=== PATIENT | female | born 1980 | race Caucasian/White ===

== ENCOUNTER 2017-08-19 12:48 | Emergency (ER) | payer BC, MEDICAID ==
[2017-08-19] MEDS ORDERED: Sodium Chloride 0.9% 1,000 ML IV ONE (13:57)
[2017-08-19] MEDS ORDERED: Sodium Chloride 0.9% 1,000 ML ONE (14:20)
[2017-08-19 14:21] LABS: BASO % 0.4 % (0.0-2.0); EOS # 0.4 K/uL (0.0-0.7); EOS % 4.3 % (0.0-4.0); HEMOGLOBIN 12.4 g/dL (11.0-16.0); LYMPH # 1.1 K/uL (1.0-4.3); LYMPH % 11.6 % (20.0-40.0); MEAN CELL VOLUME 91.1 fL (81.0-99.0); MEAN CORPUSCULAR HEMOGLOBIN 31.7 pg (27.0-31.0); MEAN CORPUSCULAR HGB CONC 34.8 g/dL (33.0-37.0); MONO # 0.5 K/uL (0.0-0.8); MONO % 5.9 % (0.0-10.0); NEUT # 7.1 K/uL (1.8-7.0); NEUT % 77.8 % (50.0-75.0); RBC 3.92 Mil/uL (3.80-5.20); RED CELL DISTRIBUTION WIDTH 12.6 % (11.5-14.5); WHITE BLOOD COUNT 9.2 K/uL (4.8-10.8)
[2017-08-19 14:31] LABS: SQUAMOUS EPITHIAL 7 /hpf (0-5); URINE BACTERIA OCC (<OCC); URINE BILIRUBIN NEGATIVE (NEGATIVE); URINE BLOOD NEGATIVE (NEGATIVE); URINE CLARITY Hazy (Clear); URINE COLOR Yellow (YELLOW); URINE GLUCOSE (UA) NORMAL (Normal); URINE LEUKOCYTE ESTERASE 1+ Leu/uL (Negative); URINE PROTEIN NEGATIVE (NEGATIVE); URINE UROBILINOGEN NORMAL mg/dL (0.2-1.0)
[2017-08-19 14:33] LABS: ALB/GLOB RATIO 1.4 (1.0-2.1); ALBUMIN 3.7 g/dL (3.5-5.0); ALT/SGPT 27 U/L (9-52); AST/SGOT 25 U/L (14-36); BLOOD UREA NITROGEN 10 mg/dL (7-17); CALCIUM 8.7 mg/dl (8.6-10.4); GFR AFRICAN-AMERICAN > 60; GFR NON-AFRICAN AMERICAN > 60; LIPASE 100 U/L (23-300)
--- NOTE | 2017-08-19 17:15 | C.PDOC ---
History Of Present Illness 36yoi female, with no past medical history, presents to ED with complaints of a sharp right lower quadrant pain for the past 3 days. She has been taking Motrin with mild pain relief. Patient states she has mild nausea but denies any vomiting, fever, vaginal bleeding, or discharge. She denies any hematochezia, hematuria or dysuria. She does report mild decreased PO intake and offers no other medical complaints. Time Seen by Provider: 08/19/17 13:50 Chief Complaint (Nursing): Abdominal Pain History Per: Patient History/Exam Limitations: no limitations Onset/Duration Of Symptoms: Days Current Symptoms Are (Timing): Still Present Location Of Pain/Discomfort: RLQ Quality Of Discomfort: Sharp Associated Symptoms: Loss Of Appetite. denies: Urinary Symptoms Abnormal Vaginal Bleeding: No Past Medical History Reviewed: Historical Data, Nursing Documentation, Vital Signs Vital Signs: Last Vital Signs Temp 98.3 F 08/19/17 18:47 Pulse 70 08/19/17 18:47 Resp 18 08/19/17 19:05 BP 91/61 L 08/19/17 18:47 Pulse Ox 99 08/19/17 18:47 - Medical History PMH: Asthma Surgical History: No Surg Hx Family History: States: Unknown Family Hx - Social History Hx Tobacco Use: No Hx Alcohol Use: No Hx Substance Use: No - Immunization History Hx Tetanus Toxoid Vaccination: No Hx Influenza Vaccination: No Hx Pneumococcal Vaccination: No Review Of Systems Except As Marked, All Systems Reviewed And Found Negative. Constitutional: Negative for: Fever, Chills Gastrointestinal: Positive for: Nausea, Abdominal Pain. Negative for: Vomiting , Diarrhea, Hematochezia Genitourinary: Negative for: Dysuria, Hematuria Physical Exam - Physical Exam Appears: Non-toxic, No Acute Distress Skin: Normal Color, Warm, Dry Head: Atraumatic, Normacephalic Eye(s): bilateral: Normal Inspection, PERRL Neck: Normal ROM, Supple Chest: Symmetrical Cardiovascular: Rhythm Regular Respiratory: Normal Breath Sounds, No Wheezing Gastrointestinal/Abdominal: Soft, Tenderness (minimal right lower quadrant tenderness), No Mass, No Guarding, No Rebound Back: Normal Inspection Extremity: Normal ROM, No Deformity Neurological/Psych: Oriented x3 ED Course And Treatment - Laboratory Results Result Diagrams: 08/19/17 14:16 08/19/17 14:16 O2 Sat by Pulse Oximetry: 97 (RA) Pulse Ox Interpretation: Normal Medical Decision Making Medical Decision Making: Impression: Abdominal pain Plan: -- Labs -- IV Fluids -- Toradol 30mg IVP -- CT Abdomen and Pelvis w/ contrast -- Disposition - Disposition Referrals: Charity Caceres, [Non-Staff] - Disposition: HOME/ ROUTINE Disposition Time: 18:00 Condition: IMPROVED Additional Instructions: Thank you for letting us take care of you today. The emergency medical care you received today was directed at your acute symptoms. If you were prescribed any medication, please fill it and take as directed. It may take several days for your symptoms to resolve. Return to the Emergency Department if your symptoms worsen, do not improve, or if you have any other problems. Please contact your doctor or call one of the physicians/clinics you have been referred to that are listed on the Patient Visit Information form that is included in your discharge packet. Bring any paperwork you were given at discharge with you along with any medications you are taking to your follow up visit. Our treatment cannot replace ongoing medical care by a primary care provider (PCP) outside of the emergency department. Thank you for allowing the [facility] team to be part of your care today. Follow up with your doctor in 3-5 days for re-evaluation and further management. Prescriptions: Ibuprofen [Motrin] 600 mg PO Q6 PRN #20 tab PRN Reason: Pain, Moderate (4-7) Nitrofurantoin Macrocrystals [Macrobid] 100 mg PO BID #14 cap Instructions: Acute Cystitis (DC) Forms: [facility] (Mongolian) - Clinical Impression Clinical Impression: Cystitis - Scribe Statement The provider has reviewed the documentation as recorded by the Zehraibe (Emilia Del Angel) Provider Attestation: All medical record entries made by the Zehraibe were at my direction and personally dictated by me. I have reviewed the chart and agree that the record accurately reflects my personal performance of the history, physical exam, medical decision making, and the department course for this patient. I have also personally directed, reviewed, and agree with the discharge instructions and disposition.
--- NOTE | 2017-08-19 18:05 | CT ---
PROCEDURE: CT abdomen pelvis dated 08/19/2017 HISTORY: Right lower quadrant tenderness COMPARISON: No prior study available comparison TECHNIQUE: Contiguous helical/transaxial images of the abdomen pelvis performed without oral or intravenous contrast material. Additional 2D sagittal and coronal reformats generated. Radiation dose: Total exam DLP = This CT exam was performed using one or more of the following dose reduction techniques: Automated exposure control, adjustment of the mA and/or kV according to patient size, and/or use of iterative reconstruction technique. FINDINGS: LOWER THORAX: There appears to be some minor tiny nodular opacities along the anterolateral pleural surface left lingular region which may represent some scarring or atelectasis Lung bases otherwise clear. No infiltrate effusion or basilar pneumothorax. There is tiny hiatal hernia. Heart size within range of normal. LIVER: The liver exhibits normal size measuring approximately 15 cm in CC dimension. No obvious hepatic mass collection or calcification. GALLBLADDER AND BILE DUCTS: Gallbladder is physiologically distended. No evidence of intraluminal gallbladder calculi. PANCREAS: The pancreas appears grossly unremarkable without obvious masses collections or calcifications. SPLEEN: Findings consistent with small splenule adjacent to the posterior inferior margin main body spleen. . ADRENALS: No adrenal lesions. KIDNEYS AND URETERS: Unremarkable. No stone or hydronephrosis. BLADDER: The urinary bladder is incompletely distended which may in part account for thick-walled appearance. Correlation with urinalysis recommended to exclude cystitis. REPRODUCTIVE: Uterus appears unremarkable. APPENDIX: Normal appearing retrocecal appendix best seen on axial image number [id number] 100. BOWEL: Evaluation of the bowel is limited due to the lack of oral contrast material. Stomach is incompletely distended which in part accounts for thick-walled appearance. Visualized loops of small bowel exhibit normal contour and caliber however there does appear to be at some fecalized content within the small bowel lumen. Stool and air seen throughout the large bowel. No evidence of mural wall thickening. PERITONEUM: Unremarkable. No fluid collection. No free air. Small fat containing umbilical hernia. LYMPH NODES: Unremarkable. No enlarged lymph nodes. VASCULATURE: Unremarkable. No aortic aneurysm. BONES: No fracture or destructive lesion. OTHER FINDINGS: None. IMPRESSION: Urinary bladder incompletely distended which in part is felt to account for thick-walled appearance however correlation with urinalysis recommended to exclude the possibility of a cystitis.
[2017-08-19 18:47] VITALS: BP 91/61; PULSE 70; RESP 18; TEMP 98.3
[2017-08-20 00:31] VITALS: O2SAT 97
== END 2017-08-19 19:06 | disposition home or self-care (01) ==
LOC: C.ER 12:48
DX: N30.90 Cystitis, unspecified without hematuria (principal)
CPT/HCPCS: 74176; 80053; 81001; 83690; 85025; 87086; 96361; 96374; 99285; J1885; J7040

== ENCOUNTER 2017-09-28 08:09 | Inpatient (IN) | payer BC, MEDICAID ==
[2017-09-28 08:20] VITALS: RESP 20
[2017-09-28] MEDS ORDERED: Sodium Chloride 0.9% 1,000 ML IV ONE (08:54)
[2017-09-28] MEDS ORDERED: Sodium Chloride 0.9% 1,000 ML ONE (09:07)
[2017-09-28 09:34] LABS: SQUAMOUS EPITHIAL 17 /hpf (0-5); URINE BACTERIA OCC (<OCC); URINE BILIRUBIN NEGATIVE (NEGATIVE); URINE BLOOD NEGATIVE (NEGATIVE); URINE CLARITY Hazy (Clear); URINE COLOR Amber (YELLOW); URINE GLUCOSE (UA) NORMAL (Normal); URINE LEUKOCYTE ESTERASE 2+ Leu/uL (Negative); URINE PROTEIN 1+ mg/dL (NEGATIVE); URINE UROBILINOGEN NORMAL mg/dL (0.2-1.0)
[2017-09-28 09:38] LABS: BASO % 0.4 % (0.0-2.0); EOS # 0.3 K/uL (0.0-0.7); EOS % 3.5 % (0.0-4.0); HEMOGLOBIN 12.8 g/dL (11.0-16.0); LYMPH # 1.1 K/uL (1.0-4.3); LYMPH % 14.8 % (20.0-40.0); MEAN CELL VOLUME 90.1 fL (81.0-99.0); MEAN CORPUSCULAR HEMOGLOBIN 30.9 pg (27.0-31.0); MEAN CORPUSCULAR HGB CONC 34.3 g/dL (33.0-37.0); MEAN PLATELET VOLUME 8.7 fL (7.2-11.7); MONO # 0.5 K/uL (0.0-0.8); MONO % 6.1 % (0.0-10.0); NEUT # 5.6 K/uL (1.8-7.0); NEUT % 75.2 % (50.0-75.0); NRBC % 0.1 % (0.0-2.0); RBC 4.14 Mil/uL (3.80-5.20); RED CELL DISTRIBUTION WIDTH 12.7 % (11.5-14.5); WHITE BLOOD COUNT 7.5 K/uL (4.8-10.8)
[2017-09-28 09:54] LABS: ALB/GLOB RATIO 1.3 (1.0-2.1); ALBUMIN 3.6 g/dL (3.5-5.0); CALCIUM 8.8 mg/dl (8.6-10.4); GFR AFRICAN-AMERICAN > 60; GFR NON-AFRICAN AMERICAN > 60; LIPASE 125 U/L (23-300)
[2017-09-28 09:55] LABS: ALT/SGPT 33 U/L (9-52); AST/SGOT 43 U/L (14-36); BLOOD UREA NITROGEN 13 mg/dL (7-17)
[2017-09-28] MEDS ORDERED: cefTRIAXone IV 1 gm in Dextros 50 ML IVPB ONE (10:25)
--- NOTE | 2017-09-28 10:49 | CT ---
PROCEDURE: CT Abdomen and Pelvis without intravenous contrast HISTORY: abd pain COMPARISON: None. TECHNIQUE: Axial and reformatted coronal and sagittal CT images of the abdomen and pelvis were obtained without IV or oral contrast administration.. Contrast dose: 0 Radiation dose: Total exam DLP = 322.29 mGy-cm. This CT exam was performed using one or more of the following dose reduction techniques: Automated exposure control, adjustment of the mA and/or kV according to patient size, and/or use of iterative reconstruction technique. FINDINGS: LOWER THORAX: Small reticular and nodular opacities are noted at the lingula of uncertain etiology. No evidence of pleural effusion LIVER: Unremarkable. No gross lesion or ductal dilatation. GALLBLADDER AND BILE DUCTS: Unremarkable. PANCREAS: Unremarkable. No gross lesion or ductal dilatation. SPLEEN: Unremarkable. ADRENALS: Unremarkable. No mass. KIDNEYS AND URETERS: Unremarkable. No hydronephrosis. No solid mass. VASCULATURE: Unremarkable. No aortic aneurysm. BOWEL: Unremarkable. No obstruction. No gross mural thickening. APPENDIX: Unremarkable. Normal appendix. PERITONEUM: Unremarkable. No free fluid. No free air. LYMPH NODES: Unremarkable. No enlarged lymph nodes. BLADDER: Unremarkable. REPRODUCTIVE: The uterine cervix appears enlarged. Otherwise the uterus and adnexa are unremarkable in this noncontrast study. BONES: There is destructive bony lesions seen at the right iliac bone extending to the iliac crest suspicious for malignant neoplasm or less likely infectious process. OTHER FINDINGS: None. IMPRESSION: No evidence of nephrolithiasis or hydronephrosis. No evidence of cholecystitis or pancreatitis colitis or appendicitis. Destructive bony lesion at the right iliac bone extending to the iliac crest suspicious for malignant neoplasm. Differential consideration in less likely infectious process. Further assessment is recommended. The uterine cervix appears enlarged. Further assessment by ultrasound or other modality is suggested. These findings were reported to the referring physician Dr. Devon Harris at 10:45 a.m. on 09/28/2017.
--- NOTE | 2017-09-28 11:00 | C.PDOC ---
History Of Present Illness Patient is a 37 y/o female, with a Hx of breast cancer, who presents to the ED with a complaint of lower right sided abdominal pain for the last 2 days. Patient notes she is currently in remission. Patient was seen here on 08/19 for similar complaints. Patient denies any fever, nausea, vomiting, diarrhea, dysuria, vaginal bleeding or vaginal discharge. Patient currently takes Tamoxifen. No other physical complaints at this time. Time Seen by Provider: 09/28/17 08:24 Chief Complaint (Nursing): Abdominal Pain History Per: Patient History/Exam Limitations: no limitations Onset/Duration Of Symptoms: Days (2) Current Symptoms Are (Timing): Still Present Associated Symptoms: denies: Fever, Nausea, Vomiting, Diarrhea, Urinary Symptoms Recent travel outside of the [place]: No Past Medical History Reviewed: Historical Data, Nursing Documentation, Vital Signs Vital Signs: Last Vital Signs Temp 98.8 F 09/28/17 08:16 Pulse 91 H 09/28/17 08:16 Resp 20 09/28/17 08:16 BP 100/67 09/28/17 08:16 Pulse Ox 95 09/28/17 11:18 - Medical History PMH: Asthma Other PMH: breast cancer Surgical History: Tonsillectomy Family History: States: No Known Family Hx - Social History Hx Tobacco Use: No Hx Alcohol Use: No Hx Substance Use: No - Immunization History Hx Tetanus Toxoid Vaccination: No Hx Influenza Vaccination: No Hx Pneumococcal Vaccination: No Review Of Systems Gastrointestinal: Positive for: Abdominal Pain Physical Exam - Physical Exam Appears: Well, Non-toxic, No Acute Distress Skin: Normal Color, Warm, Dry Head: Atraumatic, Normacephalic Oral Mucosa: Moist Chest: Symmetrical Cardiovascular: Rhythm Regular, No Murmur Respiratory: Normal Breath Sounds, No Rales, No Rhonchi, No Wheezing Gastrointestinal/Abdominal: Soft, Tenderness (mild tenderness to lower abdomen and lower mid axillary line), No Guarding, No Rebound, Other (negative McBurneys point tenderness) Extremity: Normal ROM (x4) Neurological/Psych: Oriented x3, Normal Speech, Normal Cognition ED Course And Treatment - Laboratory Results Result Diagrams: 09/28/17 09:32 09/28/17 09:32 O2 Sat by Pulse Oximetry: 95 - CT Scan/US CT abdomen/pelvis Other Rad Studies (CT/US): Interpreted By Me, Read By Radiologist CT/US Interpretation: PROCEDURE: CT Abdomen and Pelvis without intravenous contrast. HISTORY: abd pain. COMPARISON: None. TECHNIQUE: Axial and reformatted coronal and sagittal CT images of the abdomen and pelvis were obtained without IV or oral contrast administration.. Contrast dose: 0. Radiation dose: Total exam DLP = 322.29 mGy-cm. This CT exam was performed using one or more of the following dose reduction techniques: Automated exposure control, adjustment of the mA and/or kV according to patient size, and/ or use of iterative reconstruction technique. FINDINGS: LOWER THORAX: Small reticular and nodular opacities are noted at the lingula of uncertain etiology. No evidence of pleural effusion. LIVER: Unremarkable. No gross lesion or ductal dilatation. GALLBLADDER AND BILE DUCTS: Unremarkable. PANCREAS: Unremarkable. No gross lesion or ductal dilatation. SPLEEN: Unremarkable. ADRENALS: Unremarkable. No mass. KIDNEYS AND URETERS: Unremarkable. No hydronephrosis. No solid mass. VASCULATURE: Unremarkable. No aortic aneurysm. BOWEL: Unremarkable. No obstruction. No gross mural thickening. APPENDIX: Unremarkable. Normal appendix. PERITONEUM: Unremarkable. No free fluid. No free air. LYMPH NODES: Unremarkable. No enlarged lymph nodes. BLADDER: Unremarkable. REPRODUCTIVE: The uterine cervix appears enlarged. Otherwise the uterus and adnexa are unremarkable in this noncontrast study. BONES: There is destructive bony lesions seen at the right iliac bone extending to the iliac crest suspicious for malignant neoplasm or less likely infectious process. OTHER FINDINGS: None. IMPRESSION: No evidence of nephrolithiasis or hydronephrosis. No evidence of cholecystitis or pancreatitis colitis or appendicitis. Destructive bony lesion at the right iliac bone extending to the iliac crest suspicious for malignant neoplasm. Differential consideration in less likely infectious process. Further assessment is recommended. The uterine cervix appears enlarged. Further assessment by ultrasound or other modality is suggested. These findings were reported to the referring physician Dr. Devon Harris at 10:45 a.m. on 09/28/2017. Progress Note: Rocephin, toradol, and IV fluids administered. CT abdomen pelvis ordered. Case discussed with Dr Yan who agrees to admit patient to medical surgical floor. Disposition Discussed With .: Rodney Yan Doctor Will See Patient In The: Hospital Counseled Patient/Family Regarding: Studies Performed, Diagnosis - Disposition Disposition: HOSPITALIZED Disposition Time: 11:18 Condition: FAIR Forms: [facility] (Hungarian) - Clinical Impression Clinical Impression: Abdominal pain, Metastasis - Scribe Statement The provider has reviewed the documentation as recorded by the Scribe Celeste Cevallos All medical record entries made by the Scribe were at my direction and personally dictated by me. I have reviewed the chart and agree that the record accurately reflects my personal performance of the history, physical exam, medical decision making, and the department course for this patient. I have also personally directed, reviewed, and agree with the discharge instructions and disposition.
[2017-09-28 12:37] VITALS: TEMP 98.3
[2017-09-28 13:41] VITALS: BP 98/62; PULSE 80; O2SAT 98
[2017-09-29] MEDS ORDERED: Enoxaparin 40 mg Syringe SC SCH (10:00)
--- NOTE | 2017-09-29 17:07 | CP.PCM.HP ---
History of Present Illness - History of Present Illness History of Present Illness: CC: abdominal pain Present on Admission - Present on Admission Any Indicators Present on Admission: No Past Patient History - Past Medical History & Family History Past Medical History?: Yes - Past Social History Smoking Status: Never Smoked - PULMONARY Hx Asthma: Yes - HEMATOLOGICAL/ONCOLOGICAL Hx Blood Disorders: Yes Hx Cancer: Yes (left breast) - MUSCULOSKELETAL/RHEUMATOLOGICAL Hx Falls: No - PSYCHIATRIC Hx Substance Use: No - SURGICAL HISTORY Hx Tonsillectomy: Yes - ANESTHESIA Hx Anesthesia: Yes Hx Anesthesia Reactions: No Hx Malignant Hyperthermia: No Has any member of the family had a problem w/ anesthesia?: No Meds Home Medications: Home Medication List Medication Instructions Recorded Confirmed Type Cephalexin [Keflex] 500 mg PO Q8 3 Days #9 capsule 09/28/17 Rx Cephalexin [Keflex] 500 mg PO Q8H #9 capsule 09/28/17 Rx traMADol [Ultram] 50 mg PO Q8 PRN #12 tab 09/28/17 Rx traMADol [Ultram] 50 mg PO Q8H PRN #12 tab 09/28/17 Rx Allergies/Adverse Reactions: Allergies Allergy/AdvReac Type Severity Reaction Status Date / Time prochlorperazine Allergy Verified 08/19/17 13:52 shrimp Allergy Verified 08/19/17 13:25 tomato Allergy Verified 08/19/17 13:25 vancomycin Allergy Verified 08/19/17 13:25 iv dye Allergy Uncoded 08/19/17 13:25 Results - Vital Signs Recent Vital Signs: Last Vital Signs Temp 98.3 F 09/28/17 13:25 Pulse 80 09/28/17 13:25 Resp 20 09/28/17 13:25 BP 98/62 L 09/28/17 13:25 Pulse Ox 98 09/28/17 13:25 - Labs Result Diagrams: 09/28/17 09:32 09/28/17 09:32
== END 2017-09-28 14:41 | disposition home or self-care (01) | DRG 544 ==
LOC: C.ER 08:09 → C.5S 11:17
PROVIDERS: ADMIT Internal Medicine; ATTEND Internal Medicine
DX: C79.51 Secondary malignant neoplasm of bone (principal); R10.31 Right lower quadrant pain; J45.909 Unspecified asthma, uncomplicated; Z85.3 Personal history of malignant neoplasm of breast